=== PATIENT | male | born 1990 | race Caucasian/White ===

== ENCOUNTER 2017-12-09 16:38 | Emergency (ER) | payer MEDICAID ==
[2017-12-09 17:25] VITALS: BP 121/88
--- NOTE | 2017-12-09 18:35 | UC ---
Abdominal Pain Male HPI - HPI Summary HPI Summary: OVER A MONTH OF DIFFUSE ABDOMINAL PAIN. NO CLEAR ASSOCIATION WITH FOOD OR POSITION. REFLUX MEDICINE NOT HELPFUL. NO FEVER, NAUSEA, VOMITING OR DIARRHEA. LAST BM TODAY NORMAL. NO BLOOD PER RECTUM. NO URINARY SX. ALSO HAS SOME YBARRA. IS TRYING TO HYDRATE. APPETITE IS DOWN. NO RECENT CHANGES IN WEIGHT. WENT TO ER SEVERAL WEEKS AGO FOR SAME. NO CLEAR DIAGNOSIS. PAIN IS CONSTANT ALL DAY. - History of Current Complaint Chief Complaint: UCGeneralIllness Stated Complaint: HEADACHE, ABDOMINAL PAIN Time Seen by Provider: 12/09/17 18:34 Hx Obtained From: Patient Onset/Duration: Gradual Onset, Lasting Weeks, Still Present Timing: Constant Severity Initially: Moderate Severity Currently: Moderate Pain Intensity: 7 Pain Scale Used: 0-10 Numeric Location: Diffuse Radiates: No Character: Sharp Aggravating Factor(s): Nothing Alleviating Factor(s): Nothing Associated Signs And Symptoms: Positive: Decreased Appetite. Negative: Diaphoresis, Fever, Chest Pain, Dizzy, Back Pain, Constipation, Blood in Stool, Urinary Symptoms, Nausea, Vomiting, Diarrhea - Allergies/Home Medications Allergies/Adverse Reactions: Allergies Allergy/AdvReac Type Severity Reaction Status Date / Time latex Allergy Unknown REDNESS Verified 12/09/17 17:14 AND ITCHING Home Medications: Home Medications NK [No Home Medications Reported] 12/09/17 [History Confirmed 12/09/17] PMH/Surg Hx/FS Hx/Imm Hx Respiratory History: Asthma GI/ History: Gastroesophageal Reflux - Surgical History Surgical History: Yes Surgery Procedure, Year, and Place: Fx R wrist - Family History Family History: CANCER, BRAIN ANEURYSMS - Social History Alcohol Use: None Substance Use Type: Marijuana Smoking Status (MU): Light Every Day Tobacco Smoker Type: Cigarettes Amount Used/How Often: LESS THAN 1/2 PACK Review of Systems Constitutional: Negative Respiratory: Negative Cardiovascular: Negative Gastrointestinal: Abdominal Pain Genitourinary: Negative Neurological: Headache All Other Systems Reviewed And Are Negative: Yes Physical Exam Triage Information Reviewed: Yes Appearance: Well-Appearing, No Pain Distress, Well-Nourished Vital Signs: Initial Vital Signs Temp 98.9 F 12/09/17 17:15 Pulse 69 12/09/17 17:15 Resp 18 12/09/17 17:15 BP 121/88 12/09/17 17:15 Pulse Ox 99 12/09/17 17:15 Vital Signs Reviewed: Yes Eyes: Positive: Conjunctiva Clear ENT: Positive: Hearing grossly normal, Pharynx normal, TMs normal Neck: Positive: Supple, Nontender, No Lymphadenopathy Respiratory Exam: Normal Cardiovascular Exam: Normal Abdomen Description: Positive: Soft, Other: - TENDER DIFFUSELY. NO REBOUND OR RIGIDITY. Negative: CVA Tenderness (R), CVA Tenderness (L), Distended, Guarding Bowel Sounds: Positive: Present Musculoskeletal: Positive: No Edema Neurological: Positive: Alert Psychological: Positive: Normal Response To Family, Age Appropriate Behavior Skin: Negative: rashes Abd Pain Male Course/Dx - Differential Dx/Clinical Impression Provider Diagnoses: DIFFUSE ABDOMINAL PAIN, NOS Discharge - Sign-Out/Discharge Documenting (check all that apply): Discharge - Discharge Plan Condition: Stable Disposition: HOME Patient Education Materials: Abdominal Pain (ED) Referrals: No Primary Care Phys,NOPCP [Primary Care Provider] - Additional Instructions: UNCLEAR CAUSE OF YOUR DISCOMFORT. FOLLOW-UP WITH [facility]. LIST OF SPECIALISTS PROVIDED. GO TO THE ER WITHOUT FAIL IF YOU DEVELOP WORSENING PAIN, FEVER, NAUSEA, BLOOD PER RECTUM OR ANY OTHER CONCERNING SYMPTOMS. CALL THE NUMBER BELOW FOR ASSISTANCE IN ESTABLISHING WITH A PCP An additional resource available to assist in finding the appropriate physician for your health care needs is [facility] ([facility]). You may contact them by calling [phone]. - Billing Disposition and Condition Condition: STABLE Disposition: HOME
== END 2017-12-09 18:59 | disposition home or self-care (01) ==
LOC: UCCORT 16:38
DX: R10.84 Generalized abdominal pain (principal); F17.210 Nicotine dependence, cigarettes, uncomplicated
CPT/HCPCS: 99201; G0463